=== PATIENT | male | born 1975 | race Caucasian/White ===

== ENCOUNTER 2018-06-05 18:48 | Emergency (ER) | payer SELFPAY ==
[~2018-06-05] VITALS: Ht 167.6 cm; Wt 80.7 kg
[2018-06-05 20:22] LABS: HEMATOCRIT 46 % (40-54); HEMOGLOBIN 15.4 G/DL (13.3-17.7); MEAN CORPUSCULAR HEMOGLOBIN 29 PG (25-34); MEAN CORPUSCULAR HGB CONC 33 G/DL (32-36); MEAN CORPUSCULAR VOLUME 86 FL (80-99); MEAN PLATELET VOLUME 10.6 FL (7.4-10.4); NEUTROPHILS % (AUTO) 68 % (42-75); PLATELET COUNT 256 10^3/uL (130-400); RED CELL DISTRIBUTION WIDTH 13.9 % (10.0-14.5); WHITE BLOOD COUNT 6.9 10^3/uL (4.3-11.0)
[2018-06-05 20:23] LABS: BASOPHILS % (AUTO) 0 % (0-10); EOSINOPHILS % (AUTO) 8 % (0-10); LYMPHOCYTES % (AUTO) 19 % (12-44); MONOCYTES % (AUTO) 5 % (0-12)
[2018-06-05 20:24] LABS: NEUTROPHILS # (AUTO) 4.7 X 10^3 (1.8-7.8)
[2018-06-05 20:25] LABS: EOSINOPHILS # (AUTO) 0.6 10^3/uL (0.0-0.3); LYMPHOCYTES # (AUTO) 1.3 X 10^3 (1.0-4.0); MONOCYTES # (AUTO) 0.3 X 10^3 (0.0-1.0)
--- NOTE | 2018-06-05 20:27 | Diagnostic Imaging Report ---
INDICATION: Cough. Shortness of breath. EXAMINATION: PA and lateral views of the chest were obtained. FINDINGS: The lungs are well-aerated and free of infiltrates or mass. Heart is not enlarged. No pulmonary edema. No pleural effusion. No pneumothorax. No hilar adenopathy. No bony abnormalities. IMPRESSION: Normal PA and lateral chest. Dictated by: Dictated on workstation # [id number]
[2018-06-05] MEDS ORDERED: NS IV 1000 ML 1,000 ML IV SCH (20:30)
[2018-06-05] MEDS ORDERED: RT-ALBUTEROL/IPRATROPIUM 3 ML (DUONEB) VIAL INH ONE (20:30)
--- NOTE | 2018-06-05 20:30 | ED Cough/URI ---
General Chief Complaint: Respiratory Problems Stated Complaint: SOB Source: patient Exam Limitations: language barrier (Pt speaks barbadian as a second language. Offered language line or investment associate but he refused and stated he understood and did not need that.) History of Present Illness Date Seen by Provider: Jun 05, 2018 Time Seen by Provider: 20:12 Initial Comments Patient is a 42-year-old male presenting with complaints of cough and shortness of breath 2 weeks. 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 He felt like he was started to get better with his cough and shortness of breath but then it suddenly got worse again this week. He has been having subjective fevers as well. He denies smoking or using any tobacco. He has not been bringing anything up when he coughs. He states that he's had something similar a year or 2 ago but it only lasted 3 or 4 days and then got better. Timing/Duration: week (two) Severity/Quality: severe, dry cough Modifying Factors: Improves With Activity Associated Symptoms: cough, fever/chills (subjective), muscle aches, nasal congestion, nasal drainage, shortness of breath, wheezing Allergies and Home Medications Allergies Coded Allergies: No Known Drug Allergies (Unverified , 06/05/18) Home Medications Albuterol Sulfate 6.7 Gm Hfa.aer.ad, 2 PUFF INH Q6H PRN for SHORTNESS OF BREATH Prescribed by: STALIN ROA on 06/05/182230 Azithromycin 250 Mg Tablet, 250 MG PO DAILY Prescribed by: STALIN ROA on 06/05/182230 Prednisone 20 Mg Tab, 40 MG PO DAILY Prescribed by: STALIN ROA on 06/05/182230 Patient Home Medication List Home Medication List Reviewed: Yes Review of Systems Review of Systems Constitutional: see HPI, fever (subjective), malaise EENTM: see HPI Respiratory: see HPI Cardiovascular: No chest pain Gastrointestinal: no symptoms reported Genitourinary: no symptoms reported Musculoskeletal: other (generalized body aches) Skin: no symptoms reported; No rash Psychiatric/Neurological: No Symptoms Reported Hematologic/Lymphatic: No Symptoms Reported Past Zsdfeyl-Nvhmfe-Qstvis Hx Past Med/Social Hx: Reviewed Nursing Past Med/Soc Hx Patient Social History Recent Foreign Travel: No Contact w/Someone Who Travel: No Past Medical History Surgeries: No Respiratory: No Cardiac: No Neurological: No Physical Exam Vital Signs - First Documented Capillary Refill : Height: '" Weight: lbs. oz. 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, no motor/sensory deficits, alert, normal mood/affect, oriented x 3 Skin: normal color, warm/dry; No rash Progress/Results/Core Measures Suspected Sepsis SIRS Temperature: Pulse: Respiratory Rate: Laboratory Tests 06/05/18 19:20: White Blood Count 6.9 Blood Pressure / Mean: Laboratory Tests 06/05/18 19:20: Creatinine 0.96, Platelet Count 256, Total Bilirubin 0.5 Results/Orders Lab Results Laboratory Tests Test 06/05/18 19:20 Range/Units White Blood Count 6.9 4.3-11.0 10^3/uL Red Blood Count 5.39 4.35-5.85 10^6/uL Hemoglobin 15.4 13.3-17.7 G/DL Hematocrit 46 40-54 % Mean Corpuscular Volume 86 80-99 FL Mean Corpuscular Hemoglobin 29 25-34 PG Mean Corpuscular Hemoglobin Concent 33 32-36 G/DL Red Cell Distribution Width 13.9 10.0-14.5 % Platelet Count 256 130-400 10^3/uL Mean Platelet Volume 10.6 H 7.4-10.4 FL Neutrophils (%) (Auto) 68 42-75 % Lymphocytes (%) (Auto) 19 12-44 % Monocytes (%) (Auto) 5 0-12 % Eosinophils (%) (Auto) 8 0-10 % Basophils (%) (Auto) 0 0-10 % Neutrophils # (Auto) 4.7 1.8-7.8 X 10^3 Lymphocytes # (Auto) 1.3 1.0-4.0 X 10^3 Monocytes # (Auto) 0.3 0.0-1.0 X 10^3 Eosinophils # (Auto) 0.6 H 0.0-0.3 10^3/uL Basophils # (Auto) 0.0 0.0-0.1 10^3/uL Sodium Level 140 135-145 MMOL/L Potassium Level 3.5 L 3.6-5.0 MMOL/L Chloride Level 100 98-107 MMOL/L Carbon Dioxide Level 21 21-32 MMOL/L Anion Gap 19 H 5-14 MMOL/L Blood Urea Nitrogen 21 H 7-18 MG/DL Creatinine 0.96 0.60-1.30 MG/DL Estimat Glomerular Filtration Rate > 60 BUN/Creatinine Ratio 22 Glucose Level 132 H 70-105 MG/DL Calcium Level 9.3 8.5-10.1 MG/DL Corrected Calcium 8.9 8.5-10.1 MG/DL Total Bilirubin 0.5 0.1-1.0 MG/DL Aspartate Amino Transf (AST/SGOT) 27 5-34 U/L Alanine Aminotransferase (ALT/SGPT) 28 0-55 U/L Alkaline Phosphatase 143 H 40-136 U/L Total Protein 8.2 6.4-8.2 GM/DL Albumin 4.5 3.2-4.5 GM/DL My Orders Orders - STALIN ROA MD Chest Pa/Lat (2 View) (06/05/18 19:59) Cbc With Automated Diff (06/05/18 20:11) Comprehensive Metabolic Panel (06/05/18 20:11) O2 (06/05/18 20:11) Saline Lock/Iv-Start (06/05/18 20:11) Albuterol/Ipra Inhalation Soln (Duoneb I (06/05/18 20:30) Ns Iv 1000 Ml (Sodium Chloride 0.9%) (06/05/18 20:30) Svn Small Volume Nebulizer (06/05/18 20:25) Ct Angio Chest W (06/05/18 21:04) Iohexol Injection (Omnipaque 350 Mg/Ml 1 (06/05/18 21:30) Received Contrast (Hold Metformin- Contr (06/05/18 21:30) Ns (Ivpb) (Sodium Chloride 0.9% Ivpb Bag (06/05/18 21:30) Methylprednisolone Sod Succ (Solu-Medrol (06/05/18 22:45) Ceftriaxone For Iv Use (Rocephin For I (06/05/18 22:45) Azithromycin Tablet (Zithromax Tablet) (06/05/18 22:45) Medications Given in ED Current Medications Medications Dose Ordered Sig/Whit Route Start Time Stop Time Status Last Admin Dose Admin Albuterol/ Ipratropium 3 ml ONCE ONCE INH 06/05/18 20:30 06/05/18 20:31 DC 06/05/18 20:39 3 ML Azithromycin 500 mg ONCE ONCE PO 06/05/18 22:45 06/05/18 22:46 DC 06/05/18 22:41 500 MG Ceftriaxone Sodium 1000 mg/ Sterile Water 10 ml @ 200 mls/hr ONCE ONCE IV 06/05/18 22:45 06/05/18 22:47 DC 06/05/18 22:42 200 MLS/HR Iohexol 125 ml ONCE ONCE IV 06/05/18 21:30 06/06/18 00:32 DC 06/05/18 21:40 125 ML Methylprednisolone Sodium Succinate 125 mg ONCE ONCE IVP 06/05/18 22:45 06/05/18 22:46 DC 06/05/18 22:42 125 MG Sodium Chloride 50 ml ONCE ONCE IV 06/05/18 21:30 06/06/18 00:32 DC 06/05/18 21:40 50 ML Vital Signs/I&O 06/05/18 06/05/18 06/05/18 18:50 18:50 22:56 Temp 98.2 98.8 Pulse 114 80 Resp 25 20 B/P (MAP) 165/105 (125) 137/97 (110) Pulse Ox 93 93 99 O2 Delivery Nasal Cannula Room Air Room Air O2 Flow Rate 2.00 2.00 06/06/18 00:00 Intake Total 1010 ml Balance 1010 ml Capillary Refill : Progress Note #1: Progress Note Check basic labs and chest x-ray. Progress Note #2: Time: 20:25 Progress Note Chest xray does not show any definite infiltrate or explanation for his shortness of breath, hypoxia and tachycardia. Labs show a normal white count and chemistry also was normal. With needing some supplemental oxygen will give him a breathing treatment and obtain his CT of his chest to make sure that he doesn't have any blood clot or other pathology that might be causing his tachycardia and hypoxia. This will also give finer detail to his lungs in case there is a mild infiltrate that is not showing on his x-ray but might show in finer detail on the CT. This also might show up with finer detail after the fluids have infused and hydrated him better as well. Progress Note #3: Time: 22:15 Progress Note Patient does report improvement in his breathing after the nebulizer treatment. His CT scan came back showing no infiltrate or mass. His O2 sats now staying up without supplemental oxygen. Will treat with steroid and Zithromax as well as an albuterol inhaler for home. Counseled on follow-up and return precautions. Advised to finish the course of steroids and Zithromax home. Given a note in case he wasn't feeling up to going to work tomorrow since he has been here so late. Encouraged to push fluids and rest. His heart rate is down significantly after getting IV fluids and had better hydration. Diagnostic Imaging Diagonstic Imaging: Xray Plain Films/CT/US/NM/MRI: chest Comments NAME: MIGUEL SEGURA [facility] REC#: [id number] PT STATUS: REG ER : 1975 PHYSICIAN: STALIN ROA MD ADMIT DATE: 06/05/18/ER FS Signed Date of Exam:06/05/18 CHEST PA/LAT (2 VIEW) INDICATION: Cough. Shortness of breath. EXAMINATION: PA and lateral views of the chest were obtained. FINDINGS: The lungs are well-aerated and free of infiltrates or mass. Heart is not enlarged. No pulmonary edema. No pleural effusion. No pneumothorax. No hilar adenopathy. No bony abnormalities. IMPRESSION: Normal PA and lateral chest. Dictated by: Dictated on workstation # [id number] Dict: 06/05/182022 Trans: 06/05/182033 [facility] [id number] Interpreted by: AURA FORD MD Electronically signed by: AURA FORD MD 06/05/182033 Reviewed: Reviewed by Me (and read by radiology) Diagonstic Imaging: CT Plain Films/CT/US/NM/MRI: chest Comments No pulmonary embolus. Moderate Bronchial wall thickening seen throughout both lungs suggesting bronchitis. Reviewed: Reviewed [place] Study Departure Impression Primary Impression: Bronchitis Additional Impressions: Shortness of breath Upper respiratory infection with cough and congestion Disposition: HOME, SELF-CARE Condition: Stable Departure-Patient Inst. Decision time for Depature: 22:24 Referrals: NO,LOCAL PHYSICIAN (PCP) Primary Care Physician Patient Instructions: Acute Bronchitis, Adult (DC), Cough, Adult (DC) Add. Discharge Instructions: Take antibiotics until gone. Use inhaler to help with cough and shortness of breath. Drink plenty of water and use Mucinex to help your cough and make it easier to cough up any mucus or phlegm. All discharge instructions reviewed with patient and/or family. Voiced understanding. Scripts Prednisone (Prednisone) 20 Mg Tab 40 MG PO DAILY for Cough for 5 Days, #10 TAB 0 Refills Prov: STALIN ROA MD 06/05/18 Azithromycin (Azithromycin) 250 Mg Tablet 250 MG PO DAILY for 4 Days, #4 TAB 0 Refills Prov: STALIN ROA MD 06/05/18 Albuterol Sulfate (Proventil Hfa) 6.7 Gm Hfa.aer.ad 2 PUFF INH Q6H PRN for SHORTNESS OF BREATH for 14 Days, #1 INHALER 0 Refills Prov: STALIN ROA MD 06/05/18 Work/School Note: Work Release Form Date Seen in the Emergency Department: Jun 05, 2018 Return to Work: Jun 07, 2018 STALIN ROA MD Jun 05, 2018 20:30
[2018-06-05 20:41] LABS: BILIRUBIN,TOTAL 0.5 MG/DL (0.1-1.0); BUN/CREATININE RATIO 22; CALCIUM 9.3 MG/DL (8.5-10.1); CARBON DIOXIDE 21 MMOL/L (21-32); CHLORIDE 100 MMOL/L (98-107); CREATININE SERUM 0.96 MG/DL (0.60-1.30); GFR ESTIMATED > 60; GLUCOSE 132 MG/DL (70-105); POTASSIUM 3.5 MMOL/L (3.6-5.0); SODIUM 140 MMOL/L (135-145)
[2018-06-05 20:42] LABS: ALANINE AMINOTRANSFERASE 28 U/L (0-55); ALBUMIN 4.5 GM/DL (3.2-4.5); ALKALINE PHOSPHATASE 143 U/L (40-136); TOTAL PROTEIN 8.2 GM/DL (6.4-8.2)
[2018-06-05] MEDS ORDERED: NS 50 ML (IVPB) BAG IV ONE (21:30)
[2018-06-05] MEDS ORDERED: IOHEXOL 350 MG/ML 150 ML (OMNIPAQUE 350) VIAL IV ONE (21:30)
[2018-06-05] MEDS ORDERED: HOLD METFORMIN - RECEIVED CONTRAST 20 ML VIAL IV SCH (21:30)
[2018-06-05] MEDS ORDERED: PRD20T PO (22:31)
[2018-06-05] MEDS ORDERED: AZIT250T12 PO (22:31)
[2018-06-05] MEDS ORDERED: RT-ALBUINH INH (22:31)
[2018-06-05] MEDS ORDERED: cefTRIAXone FOR IV USE 1,000 MG in WATER (STERILE) FOR INJECTION 10 ML IV ONE (22:45)
[2018-06-05] MEDS ORDERED: methylPREDNISolone 125 MG (Solu-MEDROL) VIAL IVP ONE (22:45)
[2018-06-05] MEDS ORDERED: AZITHROMYCIN 250 MG TAB (ZITHROMAX) PO ONE (22:45)
[2018-06-05 22:56] VITALS: BP 137/97
--- NOTE | 2018-06-06 06:50 | Diagnostic Imaging Report ---
PROCEDURE: CT angiography of the chest with contrast. TECHNIQUE: Multiple contiguous axial images were obtained through the chest after uneventful bolus administration of intravenous contrast. 2D reconstructed CTA MIP acquisitions were also performed. Auto Exposure Controls were utilized during the CT exam to meet ALARA standards for radiation dose reduction. INDICATION: Cough, shortness of breath, and hypoxia. Evaluate for pulmonary embolism. COMPARISONS: None FINDINGS: CT ANGIOGRAM: Evaluation for pulmonary embolism is limited secondary to artifact caused by respiratory/patient motion. No pulmonary embolism is identified. Normal caliber pulmonary arteries. No acute aortic abnormality seen on this study performed without cardiac gating. TRACHEA AND MAIN BRONCHI: Mild diffuse bronchial wall thickening is demonstrated. The airways are patent without evidence of tracheal or endobronchial lesion. LUNGS AND PLEURA: No focal consolidation or pulmonary mass. No pleural effusion or pneumothorax. MEDIASTINUM AND KUNAL: Visualized thyroid gland is normal. There is a subcarinal lymph node which measures approximately 1.6 cm in short axis diameter (image 51, series 2). There is a mildly enlarged prevascular lymph node measuring 1.3 cm in short axis diameter (image 38, series 2). There is a borderline enlarged right paratracheal lymph node measuring 10 mm in short axis diameter (image 38, series 2). Esophagus is nondistended. HEART AND VESSELS: Heart is normal in size. No pericardial effusion. Thoracic aorta is nonaneurysmal. DIAPHRAGM AND UPPER ABDOMEN: Unremarkable. CHEST WALL: Unremarkable. BONES: Multilevel degenerative changes involve the spine. No acute osseous abnormality. IMPRESSION: Exam is limited by respiratory/patient motion. No pulmonary embolism is identified. Bronchial wall thickening, suggestive of bronchitis. Enlarged mediastinal lymph nodes. These are nonspecific and likely reactive in nature; however, correlation is recommended with history and physical exam to exclude other etiologies such as malignancy. Findings are in agreement with initial teleradiology report. Dictated by: Dictated on workstation # [id number]
== END 2018-06-05 22:56 | disposition home or self-care (01) ==
LOC: ER FS 18:50
DX: J40 Bronchitis, not specified as acute or chronic (principal); J06.9 Acute upper respiratory infection, unspecified
CPT/HCPCS: 36415; 71046; 71275; 80053; 85025

== ENCOUNTER 2018-06-21 01:56 | Emergency (ER) | payer SELFPAY ==
[~2018-06-21] VITALS: Ht 167.6 cm; Wt 80.7 kg
[~2018-06-21 01:56] MED LIST: AZIT250T12 PO; PRD20T PO; RT-ALBUINH INH
[2018-06-21] MEDS ORDERED: RT-ALBUTEROL/IPRATROPIUM 3 ML (DUONEB) VIAL ONE (02:02)
--- NOTE | 2018-06-21 02:10 | ED Respiratory ---
General Stated Complaint: SOB,CHEST PAIN Source: patient History of Present Illness Date Seen by Provider: Jun 21, 2018 Time Seen by Provider: 02:00 Initial Comments 42 yo M presents with shortness of breath and cough. He reports tightness in his chest. He has had similar symptoms off and on for the last few weeks but felt it was worse tonight. 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 He denies fever or chills. he has been coughing but has not been bringing anything up with the cough. He has had some congestion and runny nose. He has not followed up with a clinic doctor. He states he did get better after being here but has had breathing problems still off and on, especially in last 2 weeks. Allergies and Home Medications Allergies Coded Allergies: No Known Drug Allergies (Unverified , 06/05/18) Home Medications Albuterol Sulfate 6.7 Gm Hfa.aer.ad, 2 PUFF INH Q6H PRN for SHORTNESS OF BREATH Prescribed by: STALIN ROA on 06/21/18311 Azithromycin 250 Mg Tablet, 250 MG PO DAILY Prescribed by: STALIN ROA on 06/05/182230 Prednisone 20 Mg Tab, 40 MG PO DAILY Prescribed by: STALIN ROA on 06/21/18311 Patient Home Medication List Home Medication List Reviewed: Yes Review of Systems Review of Systems Constitutional: see HPI EENTM: see HPI, nose congestion; No epistaxis Respiratory: cough, short of breath Cardiovascular: chest pain (tightness) Gastrointestinal: no symptoms reported Genitourinary: no symptoms reported Musculoskeletal: no symptoms reported Skin: no symptoms reported; No rash Psychiatric/Neurological: No Symptoms Reported Hematologic/Lymphatic: No Symptoms Reported Past Hslslrr-Abjsyf-Tdcjdd Hx Past Med/Social Hx: Reviewed Nursing Past Med/Soc Hx Patient Social History 2nd Hand Smoke Exposure: No Recent Foreign Travel: No Contact w/Someone Who Travel: No Recent Hopitalizations: No Seasonal Allergies Seasonal Allergies: No Past Medical History Surgeries: No Respiratory: No Cardiac: No Neurological: No Genitourinary: No Gastrointestinal: No Musculoskeletal: No Endocrine: No HEENT: No Cancer: No Psychosocial: No Integumentary: No Blood Disorders: No Physical Exam Vital Signs - First Documented 06/21/18 02:08 Temp 97.6 Pulse 113 Resp 19 B/P (MAP) 157/95 (115) Pulse Ox 92 O2 Delivery Room Air Capillary Refill : Height: 5'6.00" Weight: 178lbs. 0oz. 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, alert, normal mood/affect, oriented x 3 Skin: normal color, warm/dry Progress/Results/Core Measures Suspected Sepsis SIRS Temperature: Pulse: Respiratory Rate: Blood Pressure / Mean: Results/Orders My Orders Orders - STALIN ROA MD Albuterol/Ipra Inhalation Soln (Duoneb I (06/21/18 02:15) Svn Small Volume Nebulizer (06/21/18 02:03) Chest Pa/Lat (2 View) (06/21/18 02:04) Albuterol/Ipra Inhalation Soln (Duoneb I (06/21/18 02:02) Dexamethasone Injection (Decadron Inject (06/21/18 03:15) Methylprednisolone Acetate Inj (Depo-Med (06/21/18 03:15) Albuterol/Ipra Inhalation Soln (Duoneb I (06/21/18 03:15) Svn Small Volume Nebulizer (06/21/18 03:07) Medications Given in ED Current Medications Medications Dose Ordered Sig/Whit Route Start Time Stop Time Status Last Admin Dose Admin Albuterol/ Ipratropium 3 ml ONCE ONCE INH 06/21/18 02:15 06/21/18 02:16 DC 06/21/18 02:06 3 ML Albuterol/ Ipratropium 3 ml ONCE ONCE INH 06/21/18 03:15 06/21/18 03:16 DC 06/21/18 03:16 3 ML Dexamethasone Sodium Phosphate 10 mg ONCE ONCE IM 06/21/18 03:15 06/21/18 03:16 DC 06/21/18 03:16 10 MG Methylprednisolone Acetate 40 mg ONCE ONCE IM 06/21/18 03:15 06/21/18 03:16 DC 06/21/18 03:16 40 MG Vital Signs/I&O 06/21/18 02:08 Temp 97.6 Pulse 113 Resp 19 B/P (MAP) 157/95 (115) Pulse Ox 92 O2 Delivery Room Air Capillary Refill : Progress Note #1: Time: 02:10 Progress Note For his wheezing and shortness of breath will give a duoneb treatment since it had helped last time and will repeat CXR to see if any change from early May when he was last here. Progress Note #2: Time: 02:45 Progress Note CXR appears stable from 06/05 with findings consistent with bronchitis. No infiltrate or effusion. He has improved cough and breathing after duoneb breathing treatment. His repeat exam demonstrates resolved wheezing and improved air movement in his lungs. 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 Will see if he is using inhaler and see about refill of steroids. Counseled to have pt get established with clinic and follow up for his breathing. When asked about his medicines and prescriptions from last visit he said he left the prescriptions at the hotel and did not get them filled. He wants to use [facility] so will send the scripts there electronically for him to fill this morning. Diagnostic Imaging Diagonstic Imaging: Xray Plain Films/CT/US/NM/MRI: chest Comments On my review of his 2 view cxr he has increased bronchial markings consistent with bronchitis. He has similar findings on prior film from 06/05/2018. No effusion, cardiomegaly or definite infiltrate. Reviewed: Reviewed by Me Departure Impression Primary Impression: Bronchitis, acute, with bronchospasm Disposition: 01 HOME, SELF-CARE Condition: Improved Departure-Patient Inst. Decision time for Depature: 03:10 Referrals: NO,LOCAL PHYSICIAN (PCP) Primary Care Physician Patient Instructions: Cough, Adult (DC), Acute Bronchitis Add. 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 Follow up with the clinic for your breathing as you may also need to see a lung doctor, especially if you are not improving. Scripts Prednisone (Prednisone) 20 Mg Tab 40 MG PO DAILY for Cough for 5 Days, #10 TAB 0 Refills Prov: STALIN ROA MD 06/21/18 Albuterol Sulfate (Proventil Hfa) 6.7 Gm Hfa.aer.ad 2 PUFF INH Q6H PRN for SHORTNESS OF BREATH for 14 Days, #1 INHALER 0 Refills Prov: STALIN ROA MD 06/21/18 STALIN ROA MD Jun 21, 2018 02:10
[2018-06-21] MEDS ORDERED: RT-ALBUTEROL/IPRATROPIUM 3 ML (DUONEB) VIAL INH ONE ×2 (02:15→03:15)
[2018-06-21] MEDS ORDERED: RT-ALBUINH INH (03:12)
[2018-06-21] MEDS ORDERED: PRD20T PO (03:12)
[2018-06-21] MEDS ORDERED: DEXAMETHASONE 10 MG/ML (DECADRON) 1 ML VIAL IM ONE (03:15)
[2018-06-21] MEDS ORDERED: methylPREDNISolone 40 MG/ML (DEPO MEDROL) VIAL IM ONE (03:15)
[2018-06-21 03:30] VITALS: BP 119/71
--- NOTE | 2018-06-21 06:26 | Diagnostic Imaging Report ---
Clinical indication: Patient with shortness of breath and cough. Exam: Chest x-ray PA and lateral views. Comparisons: Chest x-ray dated 06/05/2018. Findings: Lungs/pleura: Lungs are clear. There is no pneumothorax. There is no pleural effusion. Mediastinum: Unremarkable. Pulmonary vasculature: Unremarkable. Heart: Unremarkable. Bones/extrathoracic soft tissue: There are mildly hypertrophic spurs involving the thoracic spine. Impression: There is no radiographic evidence of acute cardiopulmonary process. Dictated by: Dictated on workstation # [id number]
== END 2018-06-21 03:30 | disposition home or self-care (01) ==
LOC: EDUNIT# 01:56 → ER FS 01:59
DX: J20.9 Acute bronchitis, unspecified (principal); Z79.52 Long term (current) use of systemic steroids
CPT/HCPCS: 71046; 96372